=== PATIENT | female | born 1985 | race Caucasian/White ===

== ENCOUNTER 2018-01-01 21:40 | Emergency (ER) | payer SELFPAY ==
[2018-01-01 21:52] VITALS: BP 136/87; PULSE 66; RESP 16; TEMP 98.5; O2SAT 98; BMI 28.3
--- NOTE | 2018-01-01 23:36 | ED PDOC ---
HPI: Psych/Substance Abuse Time Seen by Provider: 01/01/18 22:18 Chief Complaint (Nursing): Anxiety Chief Complaint (Provider): Anxiety History Per: Patient History/Exam Limitations: no limitations Onset/Duration Of Symptoms: Days (couple of weeks) Current Symptoms Are (Timing): Still Present Suicide/Self Injury Attempted (Context): None Modifying Factor(s): None Associated Symptoms: Anxiety Additional Complaint(s): 32 year old female with a history of bipolar disorder and depression presents to the ED for anxiety and depression. Patient reports she has been having debilitating anxiety for the past couple of weeks. She was formerly taking an antidepressant and lamictal, but she is no longer eligible for outpatient treatment with the [facility]. Patient reports SI but no plan. She is tearful and overwhelmed but has no medical complaints. Patient has been admitted once for psychiatric evaluation. PMD: none provided Past Medical History Reviewed: Historical Data, Nursing Documentation, Vital Signs Vital Signs: Last Vital Signs Temp 98.5 F 01/01/18 21:51 Pulse 66 01/01/18 21:51 Resp 16 01/01/18 21:51 BP 136/87 01/01/18 21:51 Pulse Ox 98 01/01/18 21:51 - Medical History PMH: Bipolar Disorder, Depression Denies: Diabetes, Hepatitis, HIV, HTN, Seizures, Sexually Transmitted Disease - Surgical History Surgical History: No Surg Hx - Family History Family History: States: Unknown Family Hx - Social History Current smoker - smoking cessation education provided: No Ex-Smoker (has not smoked in the last 12 months): No Alcohol: None Drugs: Denies - Home Medications Home Medications: Ambulatory Orders Medication Instructions Recorded LORazepam [Ativan] 1 mg PO Q12 PRN #4 tab 01/02/18 - Allergies Allergies/Adverse Reactions: Allergies Allergy/AdvReac Type Severity Reaction Status Date / Time No Known Allergies Allergy Verified 01/01/18 21:53 Review of Systems Psych: Positive for: Anxiety, Depression, Suicidal ideation Physical Exam - Reviewed Nursing Documentation Reviewed: Yes Vital Signs Reviewed: Yes - Physical Exam Appears: Positive for: Non-toxic, No Acute Distress Head Exam: Positive for: ATRAUMATIC, NORMOCEPHALIC Skin: Positive for: Normal Color, Warm, Dry Eye Exam: Positive for: EOMI, Normal appearance, PERRL Cardiovascular/Chest: Positive for: Regular Rate, Rhythm. Negative for: Murmur Respiratory: Positive for: Normal Breath Sounds. Negative for: Respiratory Distress Gastrointestinal/Abdominal: Positive for: Normal Exam, Soft. Negative for: Tenderness Extremity: Positive for: Normal ROM (upper and lower). Negative for: Deformity Neurologic/Psych: Positive for: Alert, Oriented (x3), Mood/Affect (tearful and depressed) - ECG O2 Sat by Pulse Oximetry: 98 (RA) Pulse Ox Interpretation: Normal Medical Decision Making Medical Decision Making: Time: 22:45 Initial Impression: 32 year old female with depression and SI in setting of known depression Initial Plan: --Crisis evaluation Initial Plan: --Urine drug screen --Urine preg --Urine dip Time: 1:06 --Patient evaluated by crisis and is medically stable for discharge home. Diagnosis anxiety. Scribe Attestation: Documented by Joleen Alexander, acting as a scribe for Francisco Cunningham MD Provider Scribe Attestation: All medical record entries made by the Scribe were at my direction and personally dictated by me. I have reviewed the chart and agree that the record accurately reflects my personal performance of the history, physical exam, medical decision making, and the department course for this patient. I have also personally directed, reviewed, and agree with the discharge instructions and disposition. Disposition - Clinical Impression Clinical Impression: Anxiety - Disposition Disposition: Routine/Home Disposition Time: 01:06 Condition: STABLE Prescriptions: LORazepam [Ativan] 1 mg PO Q12 PRN #4 tab PRN Reason: Anxiety Instructions: Anxiety, Adult (DC) Forms: [employer] (Kiswahili), [facility] ED School/Work Excuse
[2018-01-02 00:06] LABS: BARBITURATES, UR NEGATIVE (NEGATIVE); BENZODIAZEPINES, UR NEGATIVE (NEGATIVE); OPIATES, UR NEGATIVE (NEGATIVE); PHENCYCLIDINE, UR NEGATIVE (NEGATIVE)
== END 2018-01-02 01:28 | disposition home or self-care (01) ==
LOC: H.ER 21:40
DX: F41.9 Anxiety disorder, unspecified (principal); F31.9 Bipolar disorder, unspecified
CPT/HCPCS: 81025; 99282; G0480